=== PATIENT | male | born 1995 | race Caucasian/White ===

== ENCOUNTER 2024-03-09 18:07 | Emergency (ER) | payer OTHER ==
[2024-03-09 18:31] VITALS: BP 127/72; PULSE 98; RESP 20; TEMP 98.2; BMI 33.4
== END 2024-03-09 18:52 | disposition home or self-care (01) ==
LOC: FER 18:07
DX: S50.12XA Contusion of left forearm, initial encounter (principal); W19.XXXA Unspecified fall, initial encounter
CPT/HCPCS: 99282-25